=== PATIENT | male | born 1960 | race Caucasian/White ===

== ENCOUNTER → 2019-11-06 | Outpatient (CLI) | payer OTHER ==
--- NOTE | 2019-11-06 10:38 | Diagnostic Imaging Report ---
TECHNIQUE: Magnetic resonance imaging of the RIGHT WRIST was performed WITHOUT injected contrast, on a 1.5 rao magnet. HISTORY: Pain COMPARISON: None available. FINDINGS: Bone and bone marrow: No focal or infiltrative bone marrow replacing abnormality. No acute fracture or osteonecrosis. The osseous alignment is within normal limits. Joints: Fluid within the joints is within physiologic limits. The joints spaces are well maintained. Ligaments: Scapholunate: Intact Lunotriquetral: Intact Triangular fibrocartilage complex: Intact Extrinsic ligaments: Intact Tendons: First extensor compartment tenosynovitis. Carpal tunnel: The median nerve is within normal limits. Other soft tissues: Otherwise, unremarkable. IMPRESSION: First extensor compartment tenosynovitis. Otherwise, no acute osseous, ligamentous, or tendinous abnormality. Signed by: Dr. Fredrick Oneill M.D. on 11/06/2019 10:35 AM
== END ==
LOC: MRI 08:23
PROVIDERS: ATTEND Family Medicine
DX: S63.501A Unspecified sprain of right wrist, initial encounter (principal)